=== PATIENT | female | born 1955 | race Caucasian/White ===

== ENCOUNTER 2023-05-23 14:58 | Emergency (ER) | payer OTHER ==
[~2023-05-23] VITALS: Ht 157.5 cm; Wt 74.8 kg
[2023-05-23 15:00] VITALS: BP_SYST 161; PULSE 71; RESP 18; TEMP 98.1; O2SAT 96
--- NOTE | 2023-05-23 15:26 | NUR ---
RECEIVED PT FROM [facility] DASILVA. PT BIB SELF FOR C/O C/P. PT STATES SHE HAS NOT TAKEN HER THYROID MEDICATION AND FEELS THE C/P IS ASSOCIATED WITH THAT. VSS. SIDERAILS UP X2.
--- NOTE | 2023-05-23 15:27 | NUR ---
DR. HARO AT BEDSIDE TO ASSESS PT.
[2023-05-23 15:41] LABS: BASOPHILS # (AUTO) 0.1 K/uL (0.0-0.2); BASOPHILS % (AUTO) 0.9 % (0.0-2.0); EOSINOPHILS # (AUTO) 0.2 K/uL (0.0-0.4); EOSINOPHILS % (AUTO) 2.9 % (0.0-4.0); HEMATOCRIT 38.9 % (36-48); HEMOGLOBIN 12.7 g/dL (12.0-16.0); LYMPHOCYTES # (AUTO) 2.5 K/uL (1.0-5.5); LYMPHOCYTES % (AUTO) 32.2 % (20.5-51.5); MEAN CORPUSCULAR HEMOGLOBIN 29 pg (27-31); MEAN CORPUSCULAR HGB CONC 33 % (32-36); MEAN CORPUSCULAR VOLUME 88 fL (79.0-98.0); MONOCYTES # (AUTO) 0.7 K/uL (0.0-1.0); MONOCYTES % (AUTO) 8.6 % (1.7-9.3); NEUTROPHILS # (AUTO) 4.4 K/uL (1.8-7.7); NEUTROPHILS % (AUTO) 55.4 % (40.0-70.0); PLATELET COUNT (AUTO) 297 K/uL (130-430); RED BLOOD CELL COUNT(AUTO) 4.43 MIL/uL (4.2-6.2); WHITE BLOOD COUNT (AUTO) 7.9 K/uL (4.8-10.8)
--- NOTE | 2023-05-23 15:50 | NUR ---
Note undone in EDM - 05/23/23 at 1551 by YURIY Patient given written and verbal discharge instructions and verbalizes understanding. ER discussed with patient the results and treatment provided. Patient in stable condition. ID arm band removed. Rx of IBUPROFEN, NORCO given. Patient educated on pain management and to follow up with PMD. Pain Scale 0/10. Opportunity for questions provided and answered. Medication side effect fact sheet provided.
[2023-05-23 15:54] LABS: ANION GAP 8 (5-15); CALCIUM 9.1 mg/dL (8.4-11.0); CHLORIDE 110 mmol/L (98-107); CREATININE 0.68 mg/dL (0.55-1.30); GFR AFRICAN AMERICAN 111 mL/min (>90); GLUCOSE 101 mg/dL (74-106); UREA NITROGEN, BLOOD 20 mg/dL (8-21)
[2023-05-23 15:59] LABS: ALANINE AMINOTRANSFERASE 11 U/L (12-78); ALBUMIN 3.4 g/dL (3.4-4.8); ASPARTATE AMINOTRANSFERASE 11 U/L (10-37); TOTAL BILIRUBIN 0.2 mg/dL (0.0-1.0)
[2023-05-23 17:51] VITALS: BP_SYST 132; PULSE 78; RESP 16; TEMP 98.1; O2SAT 98
--- NOTE | 2023-05-23 18:00 | NUR ---
DR. HARO AT BEDSIDE TO DISCUSS POC.
--- NOTE | 2023-05-23 18:42 | NUR ---
Patient given written and verbal discharge instructions and verbalizes understanding. ER MD discussed with patient the results and treatment provided. Patient in stable condition. ID arm band removed. Patient educated on pain management and to follow up with PMD. Pain Scale 0/10. Opportunity for questions provided and answered. Medication side effect fact sheet provided.
== END 2023-05-23 17:51 | disposition home or self-care (01) ==
LOC: SED 14:58
DX: R07.9 Chest pain, unspecified (principal); I10 Essential (primary) hypertension; Z88.0 Allergy status to penicillin; Z91.041 Radiographic dye allergy status; Z79.899 Other long term (current) drug therapy
CPT/HCPCS: 36415; 71045; 80053; 84484; 85025; 99283

== ENCOUNTER 2023-12-14 04:49 | Day surgery (SDC) | payer OTHER ==
[~2023-12-14] VITALS: Ht 154.9 cm; Wt 74.4 kg
[2023-12-14] MEDS ORDERED: VANCOMYCIN HCL 1,000 MG in NS 250 ML IV ONE (05:00)
[2023-12-14] MEDS ORDERED: GABAPENTIN 400 MG CAPSULE ONE (05:18)
[2023-12-14] MEDS ORDERED: SCOPOLAMINE HYDROBROMIDE 1 MG PATCH .72 H (TRANSDERM-SCOP) TD ONE (05:18)
[2023-12-14] MEDS ORDERED: ACETAMINOPHEN 500 MG TABLET ONE (05:18)
[2023-12-14] MEDS ORDERED: ONDANSETRON 4 MG ODT TAB ONE (05:18)
[2023-12-14] MEDS ORDERED: CELECOXIB 200 MG CAPSULE ONE (05:19)
[2023-12-14] MEDS ORDERED: oxyCODONE HCL 10 MG TAB.ER.12H PO ONE (05:19)
[2023-12-14] MEDS ORDERED: GABAPENTIN 300 MG CAPSULE ONE (05:21)
[2023-12-14] MEDS: GABAPENTIN 400 MG CAPSULE PO ONE (05:37)
[2023-12-14] MEDS: ACETAMINOPHEN 500 MG TABLET PO ONE (05:37)
[2023-12-14] MEDS: ONDANSETRON 4 MG ODT TAB PO ONE (05:37)
[2023-12-14] MEDS: CELECOXIB 200 MG CAPSULE PO ONE (05:37)
[2023-12-14] MEDS: SCOPOLAMINE HYDROBROMIDE 1 MG PATCH .72 H (TRANSDERM-SCOP) TD ONE (05:37)
[2023-12-14 06:07] VITALS: RESP 18; O2SAT 98
[2023-12-14] MEDS ORDERED: ceFAZolin SODIUM 2 GM in D5W 100 ML IV ONE (07:00)
[2023-12-14] MEDS: oxyCODONE HCL 10 MG TAB.ER.12H PO ONE (07:05)
[2023-12-14] MEDS ORDERED: TRANEXAMIC ACID 1,000 MG/10 ML VIAL ONE (07:14)
[2023-12-14] MEDS ORDERED: POLYMYXIN B SULFATE 500,000 UNITS VIAL ONE (07:14)
[2023-12-14] MEDS ORDERED: hydrALAZINE HCL 20 MG/ML VIAL ONE (07:14)
[2023-12-14] MEDS ORDERED: NS IRRIG SOLN 1000 ML IR ONE (07:14)
[2023-12-14] MEDS ORDERED: EPINEPHrine HCL 1 MG/ML VIAL ONE (07:14)
[2023-12-14] MEDS ORDERED: DEXAMETHASONE SOD PHOSPHATE 4 MG/ML VIAL ONE (07:14)
[2023-12-14] MEDS ORDERED: NS 1000 ML IV.SOLN IV ONE (07:14)
[2023-12-14] MEDS ORDERED: ROPIVACAINE HCL/PF 5 MG/ML 0.5% 30 ML VIAL ONE (07:14)
[2023-12-14] MEDS ORDERED: PROPOFOL 200MG/ 20ML VIAL (DIPRIVAN) IV ONE (07:14)
[2023-12-14] MEDS ORDERED: PROPOFOL DRIP 100 ML IV ONE (07:22)
[2023-12-14] MEDS ORDERED: fentaNYL CITRATE/PF 100 MCG/2 ML AMP ONE (07:22)
[2023-12-14] MEDS ORDERED: NALOXONE HCL 0.4 MG/ML AMP (NARCAN) IVP PRN (08:45)
[2023-12-14] MEDS ORDERED: HYDROmorphone 1 MG/ML INJ. CARTRIDGE IVP PRN ×2 (08:45)
[2023-12-14] MEDS ORDERED: hydrALAZINE HCL 20 MG/ML VIAL IV PRN (08:45)
[2023-12-14] MEDS ORDERED: KETOROLAC TROMETHAMINE 30 MG VIAL IM PRN (08:45)
[2023-12-14] MEDS ORDERED: ONDANSETRON HCL 4 MG/2 ML VIAL IVP PRN (09:45)
[2023-12-14] MEDS ORDERED: HYDROcodone/ACETAMIN 7.5-325 MG TAB PO PRN (09:45)
[2023-12-14] MEDS ORDERED: HYDROcodone/ACETAMIN 5-325 MG TAB (NORCO/ VICODIN) PO PRN (09:45)
[2023-12-14 09:49] VITALS: BP_SYST 137
[2023-12-14] MEDS: ONDANSETRON HCL 4 MG/2 ML VIAL IVP PRN (13:15)
[2023-12-14] MEDS ORDERED: ONDANSETRON HCL 4 MG/2 ML VIAL ONE (13:33)
[2023-12-14] MEDS: CEFAZOLIN 1 GM IVPB PREMIX 50 ML IV SCH (14:00)
[2023-12-14] MEDS ORDERED: CEFAZOLIN 1 GM IVPB PREMIX 50 ML IV ONE (14:02)
== END 2023-12-14 14:45 | disposition home or self-care (01) ==
LOC: SDS 04:49
PROVIDERS: ATTEND Orthopaedic Surgery
DX: M17.11 Unilateral primary osteoarthritis, right knee (principal); I10 Essential (primary) hypertension; E78.00 Pure hypercholesterolemia, unspecified; E03.9 Hypothyroidism, unspecified; G89.29 Other chronic pain; F41.9 Anxiety disorder, unspecified; Z98.51 Tubal ligation status; Z98.890 Other specified postprocedural states; Z88.0 Allergy status to penicillin; Z91.041 Radiographic dye allergy status; Z79.890 Hormone replacement therapy; Z79.899 Other long term (current) drug therapy; Z82.49 Family history of ischemic heart disease and other diseases of the circulatory system
CPT/HCPCS: 87081; 64447; 27447; 73560; 97110; 97530; 97116; 97162; 88305; 88311; Q0162; J0690; J1100; J0171; J0360; J2405; J2704 ×2; J3370; J3490; J7060; J7050; J7030; A4649; C1713 ×2; C1776; J3010

== ENCOUNTER 2024-07-12 17:23 | Emergency (ER) | payer OTHER ==
[~2024-07-12] VITALS: Ht 154.9 cm; Wt 77.1 kg
[2024-07-12 17:34] VITALS: BP_SYST 186; PULSE 83; RESP 18; TEMP 97.6; O2SAT 97
[2024-07-12] MEDS: NACL 0.9% 1,000 ML IV ONE (19:27)
[2024-07-12] MEDS: methylPREDNISolone SOD SUCC/PF 62.5 MG/ML VIAL IVP ONE (19:33)
[2024-07-12] MEDS: ONDANSETRON HCL 4 MG/2 ML VIAL IVP ONE (19:34)
[2024-07-12 19:42] LABS: BASOPHILS # (AUTO) 0.1 K/uL (0.0-0.2); BASOPHILS % (AUTO) 0.6 % (0.0-2.0); EOSINOPHILS # (AUTO) 0.5 K/uL (0.0-0.4); EOSINOPHILS % (AUTO) 5.8 % (0.0-4.0); HEMATOCRIT 37.9 % (36-48); HEMOGLOBIN 12.8 g/dL (12.0-16.0); LYMPHOCYTES # (AUTO) 3.2 K/uL (1.0-5.5); LYMPHOCYTES % (AUTO) 33.5 % (20.5-51.5); MEAN CORPUSCULAR HEMOGLOBIN 29 pg (27-31); MEAN CORPUSCULAR HGB CONC 34 % (32-36); MEAN CORPUSCULAR VOLUME 86 fL (79.0-98.0); MONOCYTES # (AUTO) 0.7 K/uL (0.0-1.0); MONOCYTES % (AUTO) 7.4 % (1.7-9.3); NEUTROPHILS % (AUTO) 52.7 % (40.0-70.0); PLATELET COUNT (AUTO) 358 K/uL (130-430); RED BLOOD CELL COUNT(AUTO) 4.41 MIL/uL (4.2-6.2); RED CELL DISTRIBUTION WIDTH 14.6 % (9.0-15.0); WHITE BLOOD COUNT (AUTO) 9.5 K/uL (4.8-10.8)
[2024-07-12] MEDS: ALBUTEROL SULFATE 0.083% 2.5 MG/3 ML VIAL.NEB INH ONE ×2 (20:02→21:12)
[2024-07-12 20:03] LABS: ALANINE AMINOTRANSFERASE 15 U/L (12-78); ALBUMIN 3.6 g/dL (3.4-4.8); ANION GAP 11 (5-15); ASPARTATE AMINOTRANSFERASE 6 U/L (10-37); BILIRUBIN,DIRECT 0.1 mg/dL (0.0-0.3); CALCIUM 9.3 mg/dL (8.4-11.0); CARBON DIOXIDE 27 mmol/L (23-29); CHLORIDE 106 mmol/L (98-107); CREATININE 0.82 mg/dL (0.55-1.30); GFR AFRICAN AMERICAN 89 mL/min (>90); GLUCOSE 104 mg/dL (74-106); POTASSIUM 4.3 mmol/L (3.5-5.1); SODIUM SERUM 144 mmol/L (136-145); TOTAL BILIRUBIN 0.1 mg/dL (0.0-1.0); TOTAL PROTEIN, SERUM 6.9 g/dL (6.4-8.3); UREA NITROGEN, BLOOD 19 mg/dL (8-21)
[2024-07-12] MEDS: IPRATROPIUM BROM 0.5 MG/2.5 ML VIAL.NEB (ATROVENT) INH ONE (20:03)
[2024-07-12 20:10] LABS: GFR NON AFRICAN-AMERICAN 74 mL/min (>90)
[2024-07-12] MEDS ORDERED: ZIT250 PO (21:10)
[2024-07-12] MEDS ORDERED: PRED50TA PO (21:10)
[2024-07-12 21:59] VITALS: BP_SYST 152; PULSE 94; RESP 22; TEMP 98.4; O2SAT 97
== END 2024-07-12 21:59 | disposition home or self-care (01) ==
LOC: SED 17:23
DX: J40 Bronchitis, not specified as acute or chronic (principal); I10 Essential (primary) hypertension; E07.9 Disorder of thyroid, unspecified; E78.5 Hyperlipidemia, unspecified; Z88.0 Allergy status to penicillin; Z91.041 Radiographic dye allergy status; Z79.899 Other long term (current) drug therapy; Z79.52 Long term (current) use of systemic steroids; Z79.2 Long term (current) use of antibiotics
CPT/HCPCS: 99284; 96374; 71045; 96361; 80076; 80048; 85025; 87040; 84484; 36415; 93005; 94640; 83605; J7030; J2930